=== PATIENT | male | born 1960 | race Caucasian/White ===

== ENCOUNTER 2021-01-12 10:09 | Emergency (ER) | payer BC ==
[2021-01-12] MEDS ORDERED: Boostrix 0.5 ML (Tdap) VIAL ONE (10:33)
[2021-01-12] MEDS ORDERED: Bacitracin 1 PK ONE (12:02)
== END 2021-01-12 12:08 | disposition home or self-care (01) ==
LOC: NAV ERS 10:09
DX: S00.03XA Contusion of scalp, initial encounter (principal); S20.411A Abrasion of right back wall of thorax, initial encounter; E11.9 Type 2 diabetes mellitus without complications; E78.5 Hyperlipidemia, unspecified; Z79.899 Other long term (current) drug therapy; W22.8XXA Striking against or struck by other objects, initial encounter
CPT/HCPCS: 70450; 90715